=== PATIENT | female | born 1985 | race Caucasian/White ===

== ENCOUNTER 2016-11-27 22:24 | Emergency (ER) | payer MEDICAID, OTHER ==
[~2016-11-27] VITALS: Ht 172.7 cm; Wt 98.5 kg
[~2016-11-27 22:24] MED LIST: IBUP-1542 PO; PHEN177S43 MT
[2016-11-27 22:38] VITALS: Ht 172.7 cm; Wt 98.5 kg
[2016-11-27 23:37] LABS: ADD SCAN DIFF NO
[2016-11-27 23:39] LABS: BASOPHILS % 0.2 % (0.0-2.0); EOSINOPHILS # 0.1 10^3/ul (0.0-0.5); EOSINOPHILS % 0.9 % (0.0-7.0); HEMATOCRIT 31.9 % (37.0-47.0); HEMOGLOBIN 9.6 g/dl (12.0-16.0); LYMPHOCYTES # 2.2 10^3/ul (0.8-2.9); LYMPHOCYTES % 22.6 % (15.0-51.0); MEAN CORPUSCULAR HEMOGLOBIN 23.5 pg (29.0-33.0); MEAN CORPUSCULAR HGB CONC 30.1 g/dl (32.0-37.0); MEAN PLATELET VOLUME 9.9 fl (7.4-10.4); MONOCYTE # 0.9 10^3/ul (0.3-0.9); MONOCYTES % 9.1 % (0.0-11.0); NEUTROPHIL # 6.5 10^3/ul (1.6-7.5); NEUTROPHILS % 66.9 % (39.0-77.0); PLATELET COUNT 285 10^3/UL (140-415); RED BLOOD COUNT 4.09 10^6/ul (4.20-5.40); WHITE BLOOD COUNT 9.8 10^3/ul (4.8-10.8)
[2016-11-27 23:41] LABS: ADD UMIC YES; URINE BILIRUBIN (Dip) NEGATIVE (NEGATIVE); URINE BLOOD (Dip) 3+ (NEGATIVE); URINE COLOR RED (YELLOW); URINE GLUCOSE (Dip) NEGATIVE (NEGATIVE); URINE KETONES (Dip) TRACE (NEGATIVE); URINE LEUKOCYTE ESTERASE (Dip) NEGATIVE (NEGATIVE); URINE NITRITE (Dip) NEGATIVE (NEGATIVE); URINE TOTAL PROTEIN (Dip) 1+ (NEGATIVE); URINE UROBILINOGEN (Dip) 1.0 E.U./dL (0.1-1.0)
[2016-11-27 23:58] LABS: URINE RBCS >200 /HPF (0)
[2016-11-27 23:59] LABS: BACTERIA,URINE RARE; SQUAMOUS EPITHELIAL CELL,UR FEW
[2016-11-28 00:27] VITALS: BP 120/79; PULSE 82; RESP 16
--- NOTE | 2016-11-28 00:42 | ERD ---
ER Documentation Chief Complaint Date/Time DATE: 11/28/16 TIME: 00:42 Chief Complaint spotting x 1 week, heavy bleeding today. +preg test at home, . HPI 31-year-old female vaginal spotting for 1 week. Heavy bleeding today. She said it might of had a positive at home earlier today. No nausea no vomiting no fevers no chills. No other current complaints. ROS All systems reviewed and are negative except as per history of present illness. Medications Home Meds Active Scripts Ibuprofen* (Ibuprofen*) 600 Mg Tablet, 600 MG PO Q8, #14 TAB Prov:CAROLYN BALL DO 11/02/15 Phenol* (Chloraseptic* [place]) 177 Ml [place].pump, 2 SPRAY MT Q2H Y for SORE THROAT, #1 BOTTLE Prov:CAROLYN BALL 11/02/15 Allergies Allergies: Coded Allergies: No Known Allergy (Unverified , 11/02/15) PMhx/Soc Medical and Surgical Hx: pt denies Medical Hx, pt denies Surgical Hx History of Surgery: Yes (skin graph and x 2) Anesthesia Reaction: No Hx Neurological Disorder: No Hx Respiratory Disorders: No Hx Cardiac Disorders: No Hx Psychiatric Problems: No Hx Miscellaneous Medical Probl: No Hx Alcohol Use: No Hx Substance Use: No Hx Tobacco Use: No Smoking Status: Never smoker Physical Exam Vitals Vital Signs Date Time Temp Pulse Resp B/P Pulse Ox O2 Delivery O2 Flow Rate FiO2 11/28/16 00:27 82 16 120/79 99 11/27/16 23:32 85 17 125/73 100 Room Air 11/27/16 22:38 98.5 98 18 138/84 100 Physical Exam Const: [] Head: Atraumatic Eyes: Normal Conjunctiva ENT: Normal External Ears, Nose and Mouth. Neck: Full range of motion..~ No meningismus. Resp: Clear to auscultation bilaterally Cardio: Regular rate and rhythm, no murmurs Abd: Soft, non tender, non distended. Normal bowel sounds Skin: No petechiae or rashes Back: No midline or flank tenderness Ext: No cyanosis, or edema Neur: Awake and alert Psych: Normal Mood and Affect Result Diagram: 11/27/16 2050 Results 24 hrs Laboratory Tests Test 11/27/16 23:12 11/27/16 23:30 Urine Color RED Urine Clarity CLOUDY Urine pH 6.[address] 1.025 Urine Ketones TRACE Urine Nitrite NEGATIVE Urine Bilirubin NEGATIVE Urine Urobilinogen 1.0 E.U./dL Urine Leukocyte Esterase NEGATIVE Urine Microscopic RBC >200/HPF Urine Microscopic WBC 0-2/HPF Urine Squamous Epithelial Cells FEW Urine Bacteria RARE Urine Hemoglobin 3+ Urine Glucose NEGATIVE% Urine Total Protein 1+ White Blood Count 9.810^3/ul Red Blood Count 4.0910^6/ul Hemoglobin 9.6g/dl Hematocrit 31.9% Mean Corpuscular Volume 78.0fl Mean Corpuscular Hemoglobin 23.5pg Mean Corpuscular Hemoglobin Concent 30.1g/dl Red Cell Distribution Width 17.0% Platelet Count 70991^3/UL Mean Platelet Volume 9.9fl Neutrophils % 66.9% Lymphocytes % 22.6% Monocytes % 9.1% Eosinophils % 0.9% Basophils % 0.2% Nucleated Red Blood Cells % 0.0/100WBC Neutrophils # 6.510^3/ul Lymphocytes # 2.210^3/ul Monocytes # 0.910^3/ul Eosinophils # 0.110^3/ul Basophils # 0.010^3/ul Nucleated Red Blood Cells # 0.010^3/ul Beta HCG, Quantitative < 2.4mIU/ml Procedures/MDM Patient with no evidence of and blood on ultrasound. At this point clinically stable for outpatient management. Asked to follow-up with OB. Return for severe bleeding. Departure Diagnosis: Primary Impression: Vaginal bleeding Condition: Stable TAMI DELEON Nov 28, 2016 00:42
[2016-11-28 01:03] VITALS: TEMP 98.9
== END 2016-11-28 01:04 | disposition home or self-care (01) ==
LOC: E/R 22:24
DX: N93.9 Abnormal uterine and vaginal bleeding, unspecified (principal)
CPT/HCPCS: 36415; 76801; 76817; 81001; 84702; 85025; 86900; 86901; Z7502

== ENCOUNTER 2017-08-01 10:43 | Emergency (ER) | END 2017-08-01 12:18 | disposition home or self-care (01) ==

== ENCOUNTER 2018-07-14 13:34 | Emergency (ER) | payer SELFPAY ==
[~2018-07-14] VITALS: Wt 87.0 kg
[~2018-07-14 13:34] MED LIST changes: +ACET500C5 PO; +AMOX500C2 PO
[2018-07-14 13:37] VITALS: BP 155/63; PULSE 118; RESP 24
== END 2018-07-14 15:58 | disposition left against medical advice (07) ==
LOC: FTE 13:34
DX: Z53.21 Procedure and treatment not carried out due to patient leaving prior to being seen by health care provider (principal)